=== PATIENT | female | born 1995 | race Caucasian/White ===

== ENCOUNTER 2017-06-01 22:55 | Emergency (ER) | payer MEDICAID ==
[~2017-06-01] VITALS: Ht 162.6 cm; Wt 65.0 kg
[~2017-06-01 22:55] MED LIST: DIVA250T6 PO; LEVE750T8 PO
[2017-06-01] MEDS ORDERED: LEVETIRACETAM 1,000 MG in SODIUM CHLORIDE 0.9% 100 ML IV ONE (23:30)
[2017-06-01] MEDS ORDERED: SODIUM CHLORIDE 0.9% 1,000ML IVBOLUS ONE (23:30)
[2017-06-01 23:49] LABS: HEMATOCRIT 38.5 % (34.6-47.8); HEMOGLOBIN 13.4 g/dL (11.7-16.4); WHITE BLOOD COUNT 9.7 x10^3/uL (3.4-10)
[2017-06-02 00:01] LABS: BLOOD UREA NITROGEN 8 mg/dL (7-18)
[2017-06-02] MEDS ORDERED: PROCHLORPERAZINE 5 MG/ML, 2ML ONE (00:41)
[2017-06-02] MEDS ORDERED: DIPHENHYDRAMINE 50 MG/ML, 1ML ONE (00:41)
[2017-06-02] MEDS ORDERED: KETOROLAC 30 MG/1 ML ONE (00:41)
[2017-06-02] MEDS ORDERED: DIPHENHYDRAMINE 50 MG/ML, 1ML IVPush ONE (01:00)
[2017-06-02] MEDS ORDERED: KETOROLAC 30 MG/1 ML IVPush ONE (01:00)
[2017-06-02] MEDS ORDERED: PROCHLORPERAZINE 5 MG/ML, 2ML IVPush ONE (01:00)
[2017-06-02 01:43] VITALS: BP 115/60
[2017-06-02] MEDS ORDERED: ZIPRASIDONE 20 MG INJ IM ONE ×2 (02:00→02:01)
== END 2017-06-02 02:33 | disposition home or self-care (01) ==
LOC: ED 22:55
DX: R56.9 Unspecified convulsions (principal); G40.909 Epilepsy, unspecified, not intractable, without status epilepticus
CPT/HCPCS: 36415; 70450; 80048; 82040; 84703; 85025; 93005; 96361; 96372; 96374; 96375; 99285; J0780; J1200; J1885; J1953; J3486; J7030

== ENCOUNTER 2018-07-10 21:40 | Emergency (ER) | payer MEDICAID ==
[~2018-07-10] VITALS: Ht 157.5 cm; Wt 70.3 kg
[~2018-07-10 21:40] MED LIST changes: +DIVA-59 PO; -DIVA250T6 PO
[2018-07-10 21:42] VITALS: BP 141/90
[2018-07-10] MEDS ORDERED: IBUPROFEN 200 MG TABLET ONE (22:18)
[2018-07-10] MEDS ORDERED: IBUPROFEN 200 MG TABLET PO ONE (22:30)
== END 2018-07-10 23:01 | disposition home or self-care (01) ==
LOC: ED 22:06
DX: S46.811A Strain of other muscles, fascia and tendons at shoulder and upper arm level, right arm, initial encounter (principal); Z88.8 Allergy status to other drugs, medicaments and biological substances; F17.200 Nicotine dependence, unspecified, uncomplicated; F31.9 Bipolar disorder, unspecified; F41.1 Generalized anxiety disorder; X50.1XXA Overexertion from prolonged static or awkward postures, initial encounter; Y93.89 Activity, other specified; Y99.8 Other external cause status; Y92.89 Other specified places as the place of occurrence of the external cause
CPT/HCPCS: 29105; 71045; 93005; 99284

== ENCOUNTER 2018-07-29 00:09 | Emergency (ER) | payer MEDICAID ==
[~2018-07-29] VITALS: Ht 157.5 cm; Wt 65.0 kg
[2018-07-29 00:49] LABS: BASOPHILS # (AUTO) 0.06 x10^3/uL (0-0.1); BASOPHILS % (AUTO) 1 % (0-1); EOSINOPHILS # (AUTO) 0.06 x10^3/uL (0-0.4); EOSINOPHILS % (AUTO) 1 % (1-7); LYMPHOCYTES % (AUTO) 20 % (22-44); MD NO; MEAN CORPUSCULAR HEMOGLOBIN 30.7 pg (27.0-34.8); MEAN CORPUSCULAR HGB CONC 34.2 g/dL (32.4-35.8); MEAN CORPUSCULAR VOLUME 89.8 fL (80-100); MEAN PLATELET VOLUME 7.3 fL (7.4-10.4); MONOCYTES # (AUTO) 0.46 x10^3/uL (0.2-0.8); MONOCYTES % (AUTO) 4 % (2-9); NEUTROPHILS # (AUTO) 8.51 x10^3/uL (1.8-6.8); NEUTROPHILS % (AUTO) 75 % (42-75); PLATELET COUNT 272 x10^3/uL (130-400); RED BLOOD COUNT 4.51 x10^6/uL (3.82-5.3); RED CELL DISTRIBUTION WIDTH 12.5 % (9.6-15.2)
[2018-07-29 01:01] LABS: ALANINE AMINOTRANSFERASE 23 U/L (12-78); ALBUMIN 3.3 g/dL (3.4-5.0); ANION GAP 9 mmol/L (5-15); CALCIUM 8.2 mg/dL (8.5-10.1); CHLORIDE 111 mmol/L (98-107); CREATININE 0.61 mg/dL (0.55-1.02)
[2018-07-29 01:03] LABS: ALKALINE PHOSPHATASE 114 U/L (45-117); BILIRUBIN,TOTAL 0.3 mg/dL (0.2-1.0)
[2018-07-29 01:23] LABS: CULTURE INDICATED? YES; MICROSCOPIC INDICATED
[2018-07-29 03:03] VITALS: BP 100/68
== END 2018-07-29 03:05 | disposition home or self-care (01) ==
LOC: ED 00:38
DX: G40.909 Epilepsy, unspecified, not intractable, without status epilepticus (principal); R41.82 Altered mental status, unspecified; N39.0 Urinary tract infection, site not specified; F31.9 Bipolar disorder, unspecified; F41.1 Generalized anxiety disorder
CPT/HCPCS: 36415; 80053; 81001; 81025; 85025; 87077; 87086; 93005; 99285

== ENCOUNTER 2018-08-22 18:56 | Emergency (ER) | payer MEDICAID ==
[~2018-08-22] VITALS: Ht 165.1 cm; Wt 70.0 kg
[2018-08-22 19:29] VITALS: BP 133/75
[2018-08-22] MEDS ORDERED: ALBUTEROL/IPRATROPIUM 2.5MG/0.5MG, 3 ML NPPB ONE (20:00)
[2018-08-22] MEDS ORDERED: ALBUTEROL/IPRATROPIUM 2.5MG/0.5MG, 3 ML ONE (20:24)
== END 2018-08-22 20:52 | disposition home or self-care (01) ==
LOC: ED 20:35
DX: B34.9 Viral infection, unspecified (principal); G40.909 Epilepsy, unspecified, not intractable, without status epilepticus; F41.1 Generalized anxiety disorder; F31.9 Bipolar disorder, unspecified
CPT/HCPCS: 71046; 82962; 99283; J7512

== ENCOUNTER 2019-05-24 23:10 | Emergency (ER) | payer MEDICAID ==
[~2019-05-24] VITALS: Ht 157.5 cm; Wt 69.7 kg
--- NOTE | 2019-05-24 23:39 | NUR ---
Pt c/o CHACON x 2 days, denies n/v or vision changes, denies trauma, some tenderness to palpation neck and posterior scalp. No photophobia or neuro deficits noted, MD at bedside for assessment. vitals stable.
[2019-05-24] MEDS ORDERED: PROCHLORPERAZINE 5 MG/ML, 2ML ONE (23:50)
[2019-05-24] MEDS ORDERED: KETOROLAC 30 MG/1 ML ONE (23:50)
[2019-05-24] MEDS ORDERED: LIDODERM 5% PATCH TD ONE (23:51)
[2019-05-25] MEDS ORDERED: PROCHLORPERAZINE 5 MG/ML, 2ML IVPush ONE
[2019-05-25] MEDS ORDERED: KETOROLAC 30 MG/1 ML IVPush ONE
[2019-05-25] MEDS ORDERED: LIDODERM 5% PATCH TD ONE
[2019-05-25] MEDS ORDERED: SODIUM CHLORIDE 0.9% 1,000ML IVBOLUS ONE
--- NOTE | 2019-05-25 00:04 | NUR ---
PIV placed, IVF started, pt medicated for pain per MD orders, on monitor, NSR, vitals remain stale, labs collected.
[2019-05-25 00:15] LABS: ALBUMIN 3.2 g/dL (3.4-5.0); ANION GAP 9 mmol/L (5-15); CALCIUM 8.9 mg/dL (8.5-10.1); CHLORIDE 113 mmol/L (98-107); CREATININE 0.68 mg/dL (0.55-1.02)
[2019-05-25 00:32] LABS: BASOPHILS # (AUTO) 0.01 x10^3/uL (0-0.1); BASOPHILS % (AUTO) 0 % (0-1); EOSINOPHILS # (AUTO) 0.08 x10^3/uL (0-0.4); EOSINOPHILS % (AUTO) 1 % (1-7); LYMPHOCYTES # (AUTO) 2.76 x10^3/uL (1-3.4); LYMPHOCYTES % (AUTO) 30 % (22-44); MD NO; MEAN CORPUSCULAR HEMOGLOBIN 30.6 pg (27.0-34.8); MEAN CORPUSCULAR HGB CONC 33.5 g/dL (32.4-35.8); MEAN CORPUSCULAR VOLUME 91.3 fL (80-100); MEAN PLATELET VOLUME 7.7 fL (7.4-10.4); MONOCYTES # (AUTO) 0.42 x10^3/uL (0.2-0.8); MONOCYTES % (AUTO) 5 % (2-9); NEUTROPHILS # (AUTO) 5.99 x10^3/uL (1.8-6.8); NEUTROPHILS % (AUTO) 65 % (42-75); PLATELET COUNT 286 x10^3/uL (130-400); RED BLOOD COUNT 4.44 x10^6/uL (3.82-5.3); RED CELL DISTRIBUTION WIDTH 12.8 % (9.6-15.2)
--- NOTE | 2019-05-25 00:44 | NUR ---
TASK RN: RN TO ROOM TO ANSWER CALL LIGHT. PT STATES "DO YOU KNOW IF THE BLOOD IS DONE YET? MY JUST CALLED AND HE WANTS ME HOME BY 2 O'CLOCK". PT REPORTS IMPROVEMENT IN PAIN WITH MEDICATIONS. PT AMBULATED STEADILY TO BATHROOM
[2019-05-25 00:45] VITALS: BP 126/70
== END 2019-05-25 01:14 | disposition home or self-care (01) ==
LOC: ED 05-25 01:14
DX: G44.219 Episodic tension-type headache, not intractable (principal); J45.909 Unspecified asthma, uncomplicated; F31.9 Bipolar disorder, unspecified; F41.1 Generalized anxiety disorder; G40.909 Epilepsy, unspecified, not intractable, without status epilepticus; F17.200 Nicotine dependence, unspecified, uncomplicated; Z98.51 Tubal ligation status
CPT/HCPCS: 36415; 80048; 82040; 84703; 85025; 93005; 96374; 96375; 99284; J0780; J1885; J7030